=== PATIENT | female | born 1985 | race Hispanic/Latino ===

== ENCOUNTER 2021-07-01 00:42 | Emergency (ER) | payer OTHER ==
[~2021-07-01] VITALS: Ht 152.4 cm; Wt 66.9 kg
[2021-07-01] MEDS ORDERED: ONDANSETRON ODT8 MG PO (02:46)
[2021-07-01] MEDS ORDERED: HYDROCODON-ACE1 EA10 PO (02:46)
== END 2021-07-01 03:28 | disposition home or self-care (01) ==
LOC: ED 00:42
DX: K80.50 Calculus of bile duct without cholangitis or cholecystitis without obstruction (principal); Z20.822 Contact with and (suspected) exposure to COVID-19
CPT/HCPCS: 36415; 74177; 80053; 81001; 83605; 83690; 84703; 85025; 96375; 99284-25; A9270; C9803; J2270; J2405; J7030; Q9967; U0003